=== PATIENT | female | born 1995 | race Caucasian/White ===

== ENCOUNTER 2016-05-09 11:33 | Emergency (ER) | payer OTHER ==
[2016-05-09] MEDS ORDERED: KETOROLAC 60 MG/2 ML VIAL IVP STA (12:20)
[2016-05-09] MEDS ORDERED: SODIUM CHLORIDE 0.9% 1,000 ML IV ONE ×2 (12:20→12:43)
[2016-05-09] MEDS ORDERED: KETOROLAC 30 MG/ML VIAL ONE (12:43)
== END 2016-05-09 13:40 | disposition home or self-care (01) ==
DX: N83.209 Unspecified ovarian cyst, unspecified side (principal)

== ENCOUNTER 2016-05-27 12:37 | Emergency (ER) | payer OTHER ==
[2016-05-27] MEDS ORDERED: ONDANSETRON 4 MG/2 ML VIAL IVP STA (12:44)
[2016-05-27] MEDS ORDERED: HYDROmorphone 1 MG/ML SYRINGE IVP STA (12:44)
[2016-05-27] MEDS ORDERED: SODIUM CHLORIDE 0.9% 1,000 ML IV ONE (12:44)
[2016-05-27] MEDS ORDERED: IOPAMIDOL-300 100 ML VIAL IVP ONE (15:04)
== END 2016-05-27 16:05 | disposition home or self-care (01) ==
DX: R10.30 Lower abdominal pain, unspecified (principal); G89.18 Other acute postprocedural pain
CPT/HCPCS: 36415; 74177; 80053; 81003; 83690; 85025; 96374; 96375; 99284; J1170; Q9967

== ENCOUNTER 2017-12-13 19:02 | Outpatient (CLI) | payer MEDICAID ==
--- NOTE | 2017-12-17 01:44 | Ultrasound Report ---
Reason: OVARIAN TUMOR OF BORDERLINE MALIGNANCY,RIGHT Procedure Date: 12/13/2017 Accession Number: [id number] / [id number] Procedure: US - Pelvic w/Transvaginal CPT Code: FULL RESULT: EXAM: PELVIC ULTRASOUND EXAM DATE: 12/13/2017 07:34 PM. CLINICAL HISTORY: OVARIAN TUMOR OF BORDERLINE MALIGNANCY,RIGHT. COMPARISON: CT 05/27/2016. TECHNIQUE: Realtime transabdominal pelvic scan performed to identify the uterus and adnexa and as an overview of other pelvic structures, followed by transvaginal scan to provide greater detail of the uterus and adnexa, with static image documentation. FINDINGS: Uterus: 4.8 x 4.0 x 2.7 cm, volume 28 cc. Anteverted position. Normal overall size and echotexture. Masses: None. Endometrium: 1 mm. Atrophic. Cervix: Unremarkable. Right Ovary: Surgically absent. No right adnexal mass. Left Ovary: 1.9 x 1.8 x 1.0 cm, volume 2 cc. Normal echotexture and blood flow. Free Fluid: None. Other: None. IMPRESSION: Postoperative changes of right oophorectomy. Atrophic endometrium. RADIA
== END 2017-12-13 19:03 | disposition home or self-care (01) ==
LOC: DI 19:02
PROVIDERS: ATTEND Obstetrics & Gynecology Gynecologic Oncology
DX: N85.8 Other specified noninflammatory disorders of uterus (principal); Z90.721 Acquired absence of ovaries, unilateral
CPT/HCPCS: 36415; 76830; 76856; 86304

== ENCOUNTER → 2018-02-19 | Outpatient (CLI) | payer MEDICAID ==
[2018-02-19 18:50] LABS: BASOPHILS % (AUTO) 0.6 %; EOSINOPHILS # (AUTO) 0.1 10^3/uL (0.0-0.7); EOSINOPHILS % (AUTO) 1.9 %; LYMPHOCYTES # (AUTO) 2.6 10^3/uL (1.5-3.5); LYMPHOCYTES % (AUTO) 49.5 %; MEAN CORPUSCULAR HEMOGLOBIN 30.7 pg (27.0-31.0); MEAN CORPUSCULAR HGB CONC 34.2 g/dL (32.0-36.0); MEAN CORPUSCULAR VOLUME 89.7 fL (81.0-99.0); MONOCYTES # (AUTO) 0.4 10^3/uL (0.0-1.0); MONOCYTES % (AUTO) 7.3 %; NEUTROPHILS # (AUTO) 2.2 10^3/uL (1.5-6.6); NEUTROPHILS % (AUTO) 40.7 %; PLT - PLATELET COUNT 349 10^3/uL (130-450); RED BLOOD COUNT 4.22 10^6/uL (4.20-5.40); RED CELL DISTRIBUTION WIDTH 12.5 % (12.0-15.0); WHITE BLOOD COUNT 5.3 x10^3/uL (4.8-10.8)
[2018-02-19 19:07] LABS: ALBUMIN 4.2 g/dL (3.2-5.5); ALBUMIN/GLOBULIN RATIO 1.3 (1.0-2.2); BILIRUBIN,TOTAL 0.5 mg/dL (0.2-1.0); CALCIUM 8.8 mg/dL (8.5-10.3); CREATININE 0.5 mg/dL (0.4-1.0); TOTAL PROTEIN 7.4 g/dL (6.7-8.2)
[2018-02-19 19:16] LABS: THYROID STIMULATING HORMONE 1.34 uIU/mL (0.34-5.60)
[2018-02-19 19:18] LABS: FREE T4 (FREE THYROXINE) 0.64 ng/dL (0.58-1.64)
[2018-02-21 12:27] LABS: THYROID PEROXIDASE ANTIBODIES 1 IU/mL (<9)
== END ==
LOC: LAB.N 11:35
PROVIDERS: ATTEND Nurse Practitioner
DX: R53.83 Other fatigue (principal); E55.9 Vitamin D deficiency, unspecified; R61 Generalized hyperhidrosis
CPT/HCPCS: 36415; 80050; 82306; 82607; 82746; 84439; 84481; 86376; 86800

== ENCOUNTER 2018-04-06 11:28 | Outpatient (CLI) | payer MEDICAID | END 2018-04-06 11:29 | disposition EMS.NT | LOC: EMS 11:28 | PROVIDERS: ATTEND Surgery | DX: R45.89 Other symptoms and signs involving emotional state (principal); R07.89 Other chest pain; R20.2 Paresthesia of skin ==

== ENCOUNTER 2018-06-05 08:00 | Outpatient (CLI) | payer MEDICAID ==
[2018-06-05 19:37] LABS: THYROID STIMULATING HORMONE 1.41 uIU/mL (0.34-5.60)
[2018-06-05 20:04] LABS: FOLLICLE STIMULATING HORMONE 4.06 mIU/mL
[2018-06-05 20:05] LABS: LUTEINIZING HORMONE 2.41 mIU/mL
[2018-06-06 06:41] LABS: ESTRADIOL <15 pg/mL; PROGESTERONE <0.5 ng/mL
== END 2018-06-05 23:59 | disposition home or self-care (01) ==
LOC: LAB.N 08:00
PROVIDERS: ATTEND Nurse Practitioner
DX: R61 Generalized hyperhidrosis (principal); Z90.721 Acquired absence of ovaries, unilateral
CPT/HCPCS: 36415; 82670; 83001; 83002; 84144; 84403; 84443

== ENCOUNTER 2018-07-22 14:51 | Outpatient (CLI) | payer MEDICAID | END 2018-07-22 14:52 | disposition home or self-care (01) | LOC: SC 14:51 | PROVIDERS: ATTEND Internal Medicine Pulmonary Disease | DX: G47.10 Hypersomnia, unspecified (principal); R06.81 Apnea, not elsewhere classified; G47.8 Other sleep disorders; R41.89 Other symptoms and signs involving cognitive functions and awareness; R06.83 Snoring | CPT/HCPCS: 99203; 99212 ==

== ENCOUNTER 2018-08-16 21:01 | Outpatient (CLI) | payer MEDICAID | END 2018-08-16 21:02 | disposition home or self-care (01) | LOC: SC 21:01 | PROVIDERS: ATTEND Internal Medicine Pulmonary Disease | DX: G47.61 Periodic limb movement disorder (principal) | CPT/HCPCS: 95810 ==

== ENCOUNTER 2018-09-10 11:04 | Outpatient (CLI) | payer MEDICAID | END 2018-09-10 11:05 | disposition home or self-care (01) | LOC: SC 11:04 | PROVIDERS: ATTEND Internal Medicine Pulmonary Disease | DX: G47.61 Periodic limb movement disorder (principal); R61 Generalized hyperhidrosis | CPT/HCPCS: 99212; 99213 ==

== ENCOUNTER 2019-01-14 17:30 | Outpatient (CLI) | payer MEDICAID ==
--- NOTE | 2019-01-16 12:03 | Ultrasound Report ---
Reason: HX OF OVARIAN Procedure Date: 01/14/2019 Accession Number: [id number] / [id number] Procedure: US - Pelvic w/Transvaginal CPT Code: FULL RESULT: EXAM: PELVIC ULTRASOUND EXAM DATE: 01/14/2019 05:37 PM. CLINICAL HISTORY: History of right oophorectomy, follow-up borderline malignancy. COMPARISON: PELVIC W/TRANSVAGINAL 12/13/2017 7:10 PM. TECHNIQUE: Realtime transabdominal pelvic scan performed to identify the uterus and adnexa and as an overview of other pelvic structures, followed by transvaginal scan to provide greater detail of the uterus and adnexa, with static image documentation. FINDINGS: Uterus: 6.7 x 2.9 x 3.6 cm, volume 37 cc. Anteverted position. Normal overall size and echotexture. Masses: None. Endometrium: 2 mm. Normal. Cervix: Trace fluid in the endocervical canal present. Right Ovary: Surgically absent. Left Ovary: 1.9 x 1.4 x 2.0 cm, volume 2.8 cc. Normal echotexture and blood flow. Free Fluid: None. Other: None. IMPRESSION: 1. Right ovary surgically absent without recurrent or residual tumor. 2. Trace fluid in endocervical canal. 3. Normal left ovary. RADIA
== END 2019-01-14 17:31 | disposition home or self-care (01) ==
LOC: DI 17:30
PROVIDERS: ATTEND Obstetrics & Gynecology Gynecologic Oncology
DX: D39.11 Neoplasm of uncertain behavior of right ovary (principal); Z90.721 Acquired absence of ovaries, unilateral
CPT/HCPCS: 76830; 76856

== ENCOUNTER 2019-02-11 10:25 | Outpatient (CLI) | payer MEDICAID | END 2019-02-11 10:26 | disposition home or self-care (01) | LOC: LAB 10:25 | PROVIDERS: ATTEND Obstetrics & Gynecology Gynecologic Oncology | DX: D39.11 Neoplasm of uncertain behavior of right ovary (principal) | CPT/HCPCS: 36415; 86304 ==

== ENCOUNTER 2020-01-27 08:41 | Emergency (ER) | payer MEDICAID ==
[2020-01-27 08:53] VITALS: BP 110/63
--- NOTE | 2020-01-27 09:02 | ED Physician Documentation ---
PD HPI HEENT - Stated complaint Stated Complaint: SORE/SWOLLEN THROAT, BILAT EAR PAIN - Chief complaint Chief Complaint: Heent - History obtained from History obtained from: Patient - History of Present Illness Timing - onset: How many days ago (2) Timing - duration: Days (2) Timing - details: Abrupt onset, Still present Location: Sinuses, Throat, Other (has ear fullness, some sore throat and sinus pressure.) Associated symptoms: No: Fever, Congestion, Cough Similar symptoms before: Has not had sx before Recently seen: Not recently seen Review of Systems Constitutional: denies: Fever, Chills Ears: reports: Loss of hearing, Ear pain. denies: Drainage/discharge Nose: reports: Rhinorrhea / runny nose, Sinus pressure / pain. denies: Congestion Throat: reports: Sore throat Respiratory: reports: Cough (minimal). denies: Dyspnea, Wheezing GI: denies: Nausea, Vomiting, Diarrhea Skin: denies: Rash Neurologic: denies: Altered mental status, Headache PD PAST MEDICAL HISTORY - Past Medical History Cardiovascular: None Respiratory: None Neuro: None Psych: Depression - Past Surgical History Past Surgical History: Yes /MEDICAL TECH: Other (ovarian tumors) - Present Medications Home Medications: Ambulatory Orders Medication Instructions Recorded Confirmed Control Pills 1 tab ORAL DAILY 04/28/13 05/27/16 FLUoxetine [PROzac] 40 mg PO DAILY 12/07/15 05/27/16 buPROPion [Wellbutrin Xl] 300 mg PO DAILY 12/07/15 05/27/16 HYDROmorphone [Dilaudid] 2 mg PO Q4-6H PRN #20 tablet 05/27/16 oxyCODONE [Roxicodone] 5 mg ORAL Q4H PRN 05/27/16 05/27/16 Benzonatate [Tessalon Perle] 100 mg PO TID PRN #25 capsule 01/27/20 Cephalexin [Keflex] 500 mg PO TID #20 capsule 01/27/20 Cetirizine [ZyrTEC] 10 mg PO DAILY #15 tablet 01/27/20 dexAMETHasone [Decadron] 4 mg PO DAILY #5 tablet 01/27/20 - Allergies Allergies/Adverse Reactions: Allergies Allergy/AdvReac Type Severity Reaction Status Date / Time No Known Drug Allergies Allergy Verified 01/27/20 08:53 - Social History Does the pt smoke?: No Smoking Status: Never smoker Does the pt drink ETOH?: No Does the pt have substance abuse?: No - Immunizations Immunizations are current?: Yes - POLST Patient has POLST: No PD ED PE NORMAL - Vitals Vital signs reviewed: Yes - General General: Alert and oriented X 3, Well developed/nourished - HEENT HEENT: Ears normal, Moist mucous membranes, Pharynx benign - Neck Neck: Supple, no meningeal sign, No adenopathy - Cardiac Cardiac: RRR, No murmur - Respiratory Respiratory: Clear bilaterally - Derm Derm: Normal color, Warm and dry Results - Vitals Vitals: Vital Signs - 24 hr 01/27/20 08:45 Temperature 36.9 C Heart Rate 81 Respiratory 16 Rate Blood Pressure 110/63 O2 Saturation 99 Oxygen O2 Source Room air - Labs Labs: Laboratory Tests 01/27/20 09:27 Group A Strep Rapid Negative PD MEDICAL DECISION MAKING - ED course Complexity details: considered differential (likely viral but does not sound COVID necessarily, and has sinus pressure/inflammation symptoms, so I feel okay giving Rx for steroids/antihistamines. ), d/w patient Departure - Departure Disposition: Home, Self Care Clinical Impression: Upper respiratory infection Qualifiers: URI type: unspecified URI Qualified Code(s): J06.9 - Acute upper respiratory infection, unspecified Condition: Stable Record reviewed to determine appropriate education?: Yes Instructions: ED Upper Resp Infec No Abx Tx Follow-Up: PRETTY CAZARES, MSN, [facility] [Primary Care Provider] - Prescriptions: dexAMETHasone [Decadron] 4 mg PO DAILY #5 tablet Cephalexin [Keflex] 500 mg PO TID #20 capsule Benzonatate [Tessalon Perle] 100 mg PO TID PRN #25 capsule PRN Reason: Cough Cetirizine [ZyrTEC] 10 mg PO DAILY #15 tablet Comments: At this point your symptoms sound more like a regular viral head cold. Stay well-hydrated and use NyQuil or DayQuil. This could be treated with mainly OTC medications and good hydration. Add prescription meds for symptoms could improve things more. You could use Decadron anti-inflammatory daily for several days to decrease inflammation. Cetirizine or antihistamines can be used for congestion. Add Tessalon if needed for worsening cough. It does not look bacterial at this point. If you have a positive culture result come back in a few days or if you develop more purulent sinus drainage fevers or pressure, then add the cephalexin antibiotic. Otherwise we will presume viral. Your Covid test will result in a couple of days as well though it seems less likely to be that. Discharge Date/Time: 01/27/20 10:06
[2020-01-27] MEDS ORDERED: DEXAMETHASONE 10 MG/ML VIAL PO STA (09:20)
[2020-01-27] MEDS ORDERED: CETIRIZINE 10 MG TABLET PO STA (09:20)
[2020-01-27] MEDS ORDERED: CHERRY SYRUP 10 ML UDC PO ONE (09:20)
[2020-01-27 09:51] LABS: RAPID STREP SCREEN Negative (Negative)
== END 2020-01-27 10:06 | disposition home or self-care (01) ==
LOC: ED 08:41
DX: J06.9 Acute upper respiratory infection, unspecified (principal); Z20.828 Contact with and (suspected) exposure to other viral communicable diseases
CPT/HCPCS: 87070; 87077; 87430; 87635; 99283; 99284; A9270